=== PATIENT | female | born 1985 | race Caucasian/White ===

== ENCOUNTER → 2017-01-27 | Outpatient (CLI) | payer OTHER ==
[~2017-01-27] MED LIST: ADDERALL 10 MG10 MG PO; BACTRIM DS TAB1 EACH PO; BACTROBAN22 GM TP; HYDROCODON-ACE1 EAC7 PO
[2017-01-27 11:31] LABS: ABSOLUTE NEUTROPHILS 6.2 thou/uL (1.4-8.2); BASOPHILS 1.3 % (0.0-2.0); EOSINOPHILS 1.4 % (0.0-3.0); HEMOGLOBIN 13.6 gm/dL (12.0-15.0); LYMPHOCYTES 27.4 % (24.0-44.0); MCH 29.3 pg (26.0-34.0); MCV 86.1 fL (80.0-100.0); MONOCYTES 5.6 % (1.0-8.0); PLATELET COUNT 276 thou/uL (150-400); POLYS 64.3 % (36.0-66.0); RBC 4.64 mil/uL (4.20-5.00); RDW 13.5 % (10.5-14.5); WBC 9.7 thou/uL (4.0-11.0)
[2017-01-27 11:34] LABS: MANUAL DIFF NO
[2017-01-27 11:44] LABS: ALBUMIN 3.9 g/dL (3.4-5.0); CALCIUM 9.2 mg/dL (8.5-10.1); CREATININE 0.8 mg/dL (0.6-1.0); POTASSIUM 4.1 mmol/L (3.5-5.1); TOTAL BILIRUBIN 0.5 mg/dL (<0.1-1.0); TOTAL PROTEIN 7.8 g/dL (6.4-8.2)
== END ==
LOC: RAD 11:03
PROVIDERS: Surgery
DX: I10 Essential (primary) hypertension (principal); K21.9 Gastro-esophageal reflux disease without esophagitis; G47.33 Obstructive sleep apnea (adult) (pediatric); E66.01 Morbid (severe) obesity due to excess calories